=== PATIENT | female | born 1985 | race Caucasian/White ===

== ENCOUNTER 2025-02-20 10:05 | Outpatient (CLI) | payer OTHER, SELFPAY ==
--- OUTSIDE RECORDS SUMMARY | 2025-02-20 10:24 | XMS_ITS | Clinical Summary ---
Author Organization [facility] Address [facility] [place] [address] Care Team Providers Care Managed Care Analyst Name Role Phone Venkat Paul MD Primary Care Provider Allergies No known active allergies Medications cannabidiol, CBD, (medical cannabis) each daily Activ e Junel Fe 24 1 mg-20 mcg (24)/75 mg (4) per tablet Take 1 tablet by mouth daily 3 Active simethicone (GAS-X) 125 mg capsule Take one pill up to 4 times daily as needed for problematic cramping, bloating, gas, or nausea issues. 120 capsule 3 3 Active senna-docusate (PERICOLACE) 8.6-50 mg Take 1-2 tabs daily or a few times weekly for chronic constipation management. 180 tablet 3 3 Active UNABLE TO FIND Med Name: Magnesium drops Active multivitamin with iron tablet Take 1 tablet by mouth daily Active Lactobac. rhamnosus GG-inulin 10 billion cell -200 mg tablet,chewable Take by mouth Active Lactobacillus acidophilus 10 billion cell capsule Take by mouth Active metoprolol XL (TOPROL-XL) 25 mg extended release tablet Take 1 tablet (25 mg total) by mouth daily 90 tablet 3 4 08/22/20 Active Active Problems Problem Noted Date Diagnosed Date Irritable bowel syndrome with constipation 01/01 Bloating 01/02/2024 Family history of colon cancer 01/02/2024 Choroid plexus cyst 08/10/2023 Chronic constipation 08/10/2023 Osteoarthritis of knee 03/27/2018 Multiple melanocytic nevi 01/08/2018 Acne vulgaris 01/08/2018 Postinflammatory hyperpigmentation 01/08/2018 Conductive hearing loss 07/05/2017 Otosclerosis 07/05/2017 Glaucoma 09/07/2016 Scoliosis deformity of spine 09/06/2005 Encounters Date Type Department Care Team Description 02/18/2025 Telephone [facility] Gastroenterology at [address] [place] [phone] Denise Rivera GI Appointment 12/15/2024 Results Follow-Up [facility] Gastroenterology at [address] [place] [phone] Dominik Lozoya NP 12/09/2024 2:35 PM [employer] - 12/09/2024 11:59 PM [employer] Hospital Encounter [facility] [address] [place] [address] Chronic constipation; Abdominal fullness; Early satiety Discharge Disposition: Discharge to home or self care from Last 3 Months Immunizations Immunization Administration Dates Next Due Hep A, Adult 06/24/2020,12/10/2019 Tetanus toxoid, adsorbed 06/12/2016 Surgical History Surgery Date Site/Laterality Comments COLON SURGERY COLONOSCOPY 06/23/2024 Medical History Medical History Date Comments Glaucoma Chronic constipation Family History Medical History Relation Name Comments Arthritis Other Cancer Other Hypertension Other Stroke Other Colon cancer Paternal Grandmother Relation Name Status Comments Other Paternal Grandmother Social History Tobacco Use Types Packs/Day Years Used Date Smoking Tobacco: Never Smokeless Tobacco: Never Tobacco Cessation:Counseling Given: Not Answered AUDIT-C Answer Date Recorded Q1: How often do you have a drink containing alcohol? Never 06/19/2024 Q2: How many drinks containi ng alcohol do you have on a typical day when you are drinking? Patient does not drink Q3: How often do you have si x or more drinks on one occasion? Never 06/19/2024 Personal Safety Answer Date Recorded Have you ever been in or are you currently in a harmful physical or emotional relationship or is someone making you feel afraid or unsafe? Denies 08/07/2024 Comments Unknown Sex and Gender Information Value Date Recorded Sex Assigned at Not on file Legal Sex Female 7:41 PM [employer] Gender Identity Not on file Sexual Orientation Not on file Obstetrics History Last Filed Vital Signs Vital Sign Reading Time Taken Comments Blood Pressure 127/75 08/08/2024 1:35 AM CDT Pulse 93 08/08/2024 1:35 AM CDT Temperature 36.9 C (98.5 F) 08/08/2024 1:35 AM CDT Respiratory Rate 25 08/08/2024 1:35 AM CDT Oxygen Saturation 99% 08/08/2024 1:35 AM CDT Inhaled Oxygen Concentration - - Weight 62.6 kg (138 lb) 08/07/2024 9:28 PM CDT Height 157.5 cm (5' 2 ) 08/07/2024 9:28 PM CDT Body Mass Index 25.24 08/07/2024 9:28 PM CDT Plan of Treatment Health Maintenance Due Date Last Done Comments Cervical Cancer Screening 1986 Depression Screening 1986 Hepatitis C Screening 1986 Varicella Vaccines (1 of 2 - 13+ 2-dose series) 1999 Hepatitis B Screening 2004 Regular Well Visit/Exam 18-64 2004 DTaP/Tdap/Td Vaccine (1 - Tdap) 06/13/2016 6 Influenza Vaccine (Season Ended) 2025 HPV Vaccines Aged Out No longer eligi ble based on patient's age to complete this topic Pneumococcal vaccine <65 Aged Out No longer eligible based on patient's age to complete this topic Procedures Procedure Name Priority Date/Time Associated Diagnosis Comments XR KUB Schedule MINA, Read Routine (Patient lives out of area) 12/09/2024 2:50 PM [employer] Chronic constipation Abdominal fullness Early satiety from Last 3 Months Results * XR Kub (12/09/2024 2:50 PM [employer]) Anatomical Region Laterality Modality Body, Abdomen N/A Computed Radiogr aphy 12/09/2024 4:39 PM [employer] Narrative 12/09/2024 4:39 PM [employer] EXAM DESCRIPTION: XR KUB REASON FOR STUDY: Abdominal fullness and tightness. X-ray to rule out a high fecal load as a contributing factor. Any obvious constipation issue?, What is stool and gas pattern? Rule out constipation. H/o IBS w/ constipation, worsening over the past week. Abdominal distention and pressure TECHNIQUE: Single radiographic view of the abdomen. COMPARISON: 07/18/2017 FINDINGS: There is no definite evidence of a bowel obstruction. There is oxfqsbeq-kn-ttmmr amount of retained fecal debris in the colon, which is most significant in the transverse colon. There is no definite evidence of free air under the diaphragm within the limits of a supine projection. There is a stable mild levoscoliotic curvature of the spine. IMPRESSION: No definite evidence of bowel obstruction. Qvjlgbzq-yb-jrfvb amount of retained fecal debris in the colon, which is concerning for constipation. THIS IS AN ELECTRONICALLY VERIFIED FINAL REPORT 12/09/2024 4:39 PM - Electronically signed by Hans Selby D.O. PS: PS Report ID: [id number] Reading Location: [place] [address] Procedure Note Hans Selby, DO - 12/09/2024 EXAM DESCRIPTION: XR KUB REASON FOR STUDY: Abdominal fullness and tightness. X-ray to rule out a high fecal load as a contributing factor. Any obvious constipationissue?, What is stool and gas pattern? Rule out constipation. H/o IBS w/ constipation, worsening over the past week. Abdominaldistention and pressure TECHNIQUE: Single radiographic view of the abdomen. COMPARISON: 07/18/2017 FINDINGS: There is no definite evidence of a bowel obstruction. There is pruiyeny-mq-brtyl amount of retained fecal debris in the colon, which ismost significant in the transverse colon. There is no definite evidence offree air under the diaphragm within the limits of a supine projection. Thereis a stable mild levoscoliotic curvature of the spine. IMPRESSION: No definite evidence of bowel obstruction. Qdwlkphy-sb-loapw amount of retained fecal debris in the colon, which is concerning for constipation. THIS IS AN ELECTRONICALLY VERIFIED FINAL REPORT 12/09/2024 4:39 PM - Electronically signed by Hans Selby D.O. PS: PS Report ID: [id number] Reading Location: [place] [address] us Dominikjosy Lozoya TUNA PURSE SEINER IMG XR PROCEDURES F inal Result from Last 3 Months Insurance [facility] IDPA [facility] Advance Directives For more information, please contact: [phone] * Full Code (Latest Code Status on File) Date Activated Date Inactivated Comments 06/23/2024 11:58 AM 06/23/2024 6:09 PM * Full Code Date Activated Date Inactivated Comments 06/23/2024 11:58 AM 06/23/2024 11:58 AM Care Teams Managed Care Analyst Relationship Specialty Start Date End Date Venkat Paul MD [address] [facility] [facility] [facility] [address] [address] [place] [address] PCP - General Family Medicine 01/18/23
--- OUTSIDE RECORDS SUMMARY | 2025-02-20 10:24 | XMS_ITS | Clinical Summary ---
Author Organization [email or web address] Address [address] [place] [address] Care Team Providers Care Security Checker Name Role Phone Venkat Paul MD Primary Care Provider [phone] Source Comments [email or web address],non-owned Affiliates and Associated Physician Practices is amultiple site organization consisting of ambulatory clinics and hospital sitesin [place], [place], [place] and [place]. This disclosure is being madepursuant to the Care Everywhere program and may not contain all information available regarding this patient. Last updated 18.[email or web address] Allergies No known active allergies Medications * Be aware that medications may not be up to date on this document. Alwaysverify current medications with the patient. 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 Melanocytic nevi of trunk 07/19/2021 Conductive hearing loss 07/05/2017 Otosclerosis 07/05/2017 Family History Medical History Relation Name Comments None Known Brother None Known Father None Known Maternal Aunt None Known Maternal Grandfather None Known Maternal Grandmother None Known Maternal Uncle Cancer - Other Mother None Known Other None Known Paternal Aunt None Known Paternal Grandfather None Known Paternal Grandmother None Known Paternal Uncle None Known Sister Asthma Neg Hx CVA Neg Hx Cancer - Breast Neg Hx Cancer - Skin, Melanoma Neg Hx Cancer - Skin, Non Melanoma Neg Hx Eczema Neg Hx Hemophilia Neg Hx Psoriasis Neg Hx Relation Name Status Comments Brother Father Maternal Aunt Maternal Grandfather Maternal Grandmother Maternal Uncle Mother Alive Other Paternal Aunt Paternal Grandfather Paternal Grandmother Paternal Uncle Sister Social History Tobacco Use Types Packs/Day Years Used Date Smoking Tobacco: Never Smokeless Tobacco: Never Alcohol Use Standard Drinks/Week Comments Yes 4 (1 standard drink = 0.6 oz pur e alcohol) Comments Unknown Sex and Gender Information Value Date Recorded Sex Assigned at Not on file 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 Gender Identity Not on file Sexual Orientation Not on file Last Filed Vital Signs Vital Sign Reading Time Taken Comments Blood Pressure 105/70 06/27/2017 11:18 AM CDT Pulse 63 06/27/2017 11:18 AM CDT Temperature - - Respiratory Rate - - Oxygen Saturation - - Inhaled Oxygen Concentration - - Weight 69.9 kg (154 lb) 07/05/2017 2:51 PM CDT Height 157.5 cm (5' 2 ) 07/05/2017 2:51 PM CDT Body Mass Index 28.17 07/05/2017 2:51 PM CDT Plan of Treatment Health Maintenance Due Date Last Done Comments HIV SCREENING 2001 HEPATITIS C SCREENING 03/27/2004 DTAP/TDAP/TD VACCINES (1 - Tdap) 2005 HEPATITIS B VACCINE (1 of 3 - 19+ 3-dose series) 2005 COVID-19 VACCINE ( - 2023-2 5 season) 2024 DEPRESSION SCREENING 10/29/2024 INFLUENZA VACCINE (Season Ended) 2025 ZOSTER VACCINE (1 of 2) 2036 HIB VACCINE Aged Out No longer eligi ble based on patient's age to complete this topic HPV VACCINE Aged Out No longer eligi ble based on patient's age to complete this topic MENINGOCOCCAL (Group B) VACC INE SHARED DECISION-MAKING Aged Out No longer eligibl e based on patient's age to complete this topic MENINGOCOCCAL GROUPS A/C/Y/W VACCINE Aged Out No longer eligible b ased on patient's age to complete this topic PNEUMOCOCCAL VACCINE Aged Out No long er eligible based on patient's age to complete this topic Insurance [facility] Care Teams Security Checker Relationship Specialty Start Date End Date Venkat Paul MD [address] [place] [id number] PCP - General 06/29/21
--- OUTSIDE RECORDS SUMMARY | 2025-02-20 10:24 | XMS_ITS | Clinical Summary ---
[facility] Organization [facility] Address [address] [facility] [place] [phone] Phone Care Team Providers Care Bioinformatician Name Role Phone [facility], External Provider Primary Care Provider U navailable Social History Tobacco Use Types Packs/Day Years Used Date Smoking Tobacco: Never Assessed Comments Unknown Sex and Gender Information Value Date Recorded Sex Assigned at Not on file Legal Sex Female 9:49 AM CDT Gender Identity Not on file Sexual Orientation Not on file Plan of Treatment Health Maintenance Due Date Last Done Comments DTAP/TDAP/TD VACCINES (1 - Tdap) 2005 HEPATITIS B VACCINES (1 of 3 - 19+ 3-dose series) 2005 HPV/Cotest (21-29) 2007 CERVICAL CANCER SCREENING 2016 HPV/Cotest (30-65) 2016 PAP SMEAR 2016 INFLUENZA VACCINE (#1) 2024 HPV VACCINES Aged Out No longer eligi ble based on patient's age to complete this topic Insurance [facility] Care Teams Bioinformatician Relationship Specialty Start Date End Date [facility], External Provider [address], [place] [address] PCP - General 06/27/17
--- OUTSIDE RECORDS SUMMARY | 2025-02-20 10:24 | XMS_ITS | Referral Summary ---
Author Organization [facility] Address [address] [place] [address] Care Team Providers Care Welfare Analyst Name Role Phone Venkat Paul MD Primary Care Provider [phone] Encounters Date Type Department Care Team Description 02/18/2025 Telephone [facility] Gastroenterology at [address] [place] [phone] Denise Rivera GI Appointment 12/15/2024 Results Follow-Up [facility] Gastroenterology at [address] [place] [phone] Dominik Lozoya NP 12/09/2024 2:35 PM [employer] - 12/09/2024 11:59 PM [employer] Hospital Encounter [facility] [address] [place] [address] Chronic constipation; Abdominal fullness; Early satiety Discharge Disposition: Discharge to home or self care from Last 3 Months Allergies No known active allergies Medications cannabidiol, [...] Glaucoma 09/07/2016 Scoliosis deformity of spine 09/06/2005 Immunizations Immunization Administration Dates Next Due Hep A, Adult 06/24/2020,12/10/2019 Tetanus toxoid, adsorbed 06/12/2016 Social History Tobacco Use Types Packs/Day Years [...] on file Legal Sex Female 7:41 PM [employer] Gender Identity Not on file Sexual Orientation [...] 08/07/2024 9:28 PM CDT Plan of Treatment Not on file Procedures Procedure Name Priority Date/Time Associated Diagnosis Comments XR KUB Schedule MINA, Read Routine (Patient lives out of area) 12/09/2024 2:50 PM [employer] Chronic constipation Abdominal fullness Early satiety from Last 3 Months Results * XR Kub (12/09/2024 2:50 PM [employer]) Anatomical Region Laterality Modality Body, Abdomen N/A Computed Radiogr aphy 12/09/2024 4:39 PM [employer] Narrative 12/09/2024 4:39 PM [employer] WORK[employer] EXAM DESCRIPTION: XR KUB REASON FOR STUDY: [...] evidence of a bowel obstruction. There is pocxwlkz-eh-ahyvq amount of retained fecal debris in the colon, which is most significant in the transverse colon. There is no definite evidence of free air under the diaphragm within the limits of a supine projection. There is a stable mild levoscoliotic curvature of the spine. IMPRESSION: No definite evidence of bowel obstruction. Huhhlzzy-po-kbunn amount of retained fecal debris in the colon, which is concerning for constipation. THIS IS AN ELECTRONICALLY VERIFIED FINAL REPORT 12/09/2024 4:39 PM - Electronically signed by Hans Selby D.O. PS: PS Report ID: [id number] Reading Location: [id number] Procedure Note Hans Selby, DO - 12/09/2024 [...] evidence of a bowel obstruction. There is jodlatne-ar-sfwme amount of retained fecal debris in the colon, which ismost significant in the transverse colon. There is no definite evidence offree air under the diaphragm within the limits of a supine projection. Thereis a stable mild levoscoliotic curvature of the spine. IMPRESSION: No definite evidence of bowel obstruction. Tqbvftdy-tn-eefda amount of retained fecal debris in the colon, which is concerning for constipation. THIS IS AN ELECTRONICALLY VERIFIED FINAL REPORT 12/09/2024 4:39 PM - Electronically signed by Hans Selby D.O. PS: PS Report ID: [id number] Reading Location: [id number] us Dominik Moriahvinay Lozoya WEB PRESSMAN IMG XR PROCEDURES F inal Result from Last 3 Months Insurance [facility] IDPA IDPA [facility] Advance Directives For more information, please contact: [phone] * Full Code (Latest Code Status on File) Date Activated Date Inactivated Comments 06/23/2024 11:58 AM 06/23/2024 6:09 PM * Full Code Date Activated Date Inactivated Comments 06/23/2024 11:58 AM 06/23/2024 11:58 AM Care Teams Welfare Analyst Relationship Specialty Start Date End Date Venkat Paul MD [address] [place] [address] [address] [place] [address] PCP - General Family Medicine 01/18/23
--- OUTSIDE RECORDS SUMMARY | 2025-02-20 10:24 | XMS_ITS | Data Portability ---
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 500 mg capsule TAKE 1 CAPSULE BY MOUTH EVERY 8 HOURS 07/19 completed Not Available Not Available Not Available Iron (ferrous sulfate) 325 mg (65 mg iron) tablet Take 2 tablets every day by oral route. 09/07 completed Not Available Not Available Not Available Doc-Q-Lace 100 mg capsule 09/07 completed Not Available Not Available Not Available ciprofloxac in 500 mg tablet TAKE 1 TABLET BY MOUTH TWICE DAILY 09/04 completed Not Available Not Available Not Available sulfamethox azole 800 mg-trimetho prim 160 mg tablet Take 1 tablet every 12 hours by oral route for 7 days. 03/11 completed Not Available Not Available Not Available Vitamin tablet Take 1 tablet every day by oral route for 30 days. 09/07 completed Not Available Not Available Not Available amoxicillin 875 mg tablet TAKE 1 TABLET BY MOUTH TWICE DAILY FOR 7 DAYS 12/21 completed Not Available Not Available Not Available polymyxin B sulfate 10,000 unit-trimet hoprim 1 mg/mL eye drops 12/21 completed Not Available Not Available Not Available ibuprofen 600 mg tablet 09/07 completed Not Available Not Available Not Available oxycodone-a cetaminophe n 7.5 mg-325 mg tablet TAKE 1 TABLET EVERY 6 HOURS NEEDED FOR PAIN 07/26 completed Not Available Not Available Not Available fluticasone propionate 50 mcg/actuati on nasal spray,suspe nsion SHAKE LIQUID AND USE 2 SPRAYS IN EACH NOSTRIL EVERY DAY active Not Available Not Available No t Available Nilda 0.35 mg tablet 09/07 completed Not Available Not Available Not Available chlorhexidi ne gluconate 0.12 % mouthwash SWISH AND SPIT 15 ML BY MOUTH THREE TIMES DAILY UNTIL ALL TAKEN 09/04 completed Not Available Not Available Not Available Se-Milena 19 (with docusate) 29 mg iron-1 mg-25 mg tablet 09/07 completed Not Available Not Available Not Available Stimulant Laxative Plus 8.6 mg-50 mg tablet TAKE 2 TABLETS BY MOUTH EVERY DAY NEEDED 07/26 completed Not Available Not Available Not Available Gummy 400 mcg-35 mg-25 mg-5 mg chewable tablet Take 1 tablet every day by oral route as directed. 09/07 completed Not Available Not Available Not Available Aurovela 24 Fe 1 mg-20 mcg (24)/75 mg (4) tablet TAKE 1 TABLET BY MOUTH EVERY DAY 09/04 completed Not Available Not Available Not Available ID NOW COVID-19 Test Kit TEST DIRECTED TODAY 07/26 completed Not Available Not Available Not Available Vitals Date Recorded Body weight Body mass index (BMI) Body height Respiratory rate Body temperature Oxygen saturation Oxygen saturation in Arterial blood by Pulse oximetry Heart rate Systolic blood pressure Diastolic blood pressure Provider Name and Address Organization Details Last Updated DateTime 4 72993.3 g 24.8 kg/m2 158.75 cm 16 /min 98.9 [degF] 99 % 99 % 85 /min 122 mm[Hg] 85 mm[Hg] Mercy Corley [place] [facility] 4 14:42:35 Date Recorded Body height Body mass index (BMI) Body weight Oxygen saturation Oxygen saturation in Arterial blood by Pulse oximetry Heart rate Respiratory rate Body temperature Systolic blood pressure Diastolic blood pressure Provider Name and Address Organization Details Last Updated DateTime 5 158.75 cm 23.8 kg/m2 31547.9 9 g 100 % 100 % 98 /min 16 /min 97.3 [degF] 105 mm[Hg] 73 mm[Hg] Shawna Raza MA [facility] 5 12:15:53 Date Recorded Body height Body mass index (BMI) Body weight Heart rate Systolic blood pressure Diastolic blood pressure Provider Name and Address Organization Details Last Updated DateTime 5 158.75 cm 24.5 kg/m2 77903.9 9 g 67 /min 115 mm[Hg] 78 mm[Hg] [facility] 5 11:46:59 Date Recorded Body height Body mass index (BMI) Body weight Respiratory rate Body temperature Heart rate Systolic blood pressure Diastolic blood pressure Provider Name and Address Organization Details Last Updated DateTime 5 158.75 cm 25 kg/m2 39348.3 4 g 16 /min 98 [degF] 84 /min 114 mm[Hg] 80 mm[Hg] Mita Aviles [facility] 5 16:27:16 Date Recorded Body height Body mass index (BMI) Body weight Body temperature Heart rate Systolic blood pressure Diastolic blood pressure Provider Name and Address Organization Details Last Updated DateTime 5 158.75 cm 25.1 kg/m2 09171.4 2 g 100.5 [degF] 67 /min 122 mm[Hg] 80 mm[Hg] Moriah Leblanc MA [facility] 5 15:32:41 Social History Question Answer Notes LastModified by Organization Details LastModified Time Tobacco Smoking Status [facility] 08/11/2015 12:05:24 Do You Have An Advance Directive? No Information not available 09/07/2016 What Is Your Level Of Alcohol Consumption? None [email or web address] Information not available 09/04/2024 What Is Your Level Of Caffeine Consumption? Moderate Information not available 09/07/2016 In The 14 Days Before Symptom Onset, Have You Had Close Contact With A Laboratory-con firmed COVID-19 While That Case Was Ill? No Information not available 03/06/2022 In The 14 Days Before Symptom Onset, Have You Had Close Contact With A Person Who Is Under Investigation For COVID-19 While That Person Was Ill? No Information not available 03/06/2022 Have You Been To An Area Known To Be High Risk For COVID-19? No Information not available 03/06/2022 Are You Currently Employed? Yes Information not available 09/07/2016 What Type Of Diet Are You Following? REGULAR Information not available 09/07/2016 Which Illicit Or Recreational Drugs Have You Used? None Information not available 09/07/2016 Do You Or Have You Ever Used E-cigarettes Or Vape? Never Used Electronic Cigarettes Information not available 12/10/2019 Education 2 Year College Informatio n not available 09/07/2016 What Is Your Occupation? Self Employed Information not available 09/07/2016 Are There Any Guns Present In Your Home? No Information not available 09/07/2016 Legally Blind In One Or Both Eyes? No Information not available 09/07/2016 Live Alone Or With Others? With Others , Has A 3 Mos Old [email or web address] Information not available 09/08/2016 Do You Have A High School Diploma Or Higher Education? Yes Information not available 12/21/2022 Do You Sometimes Have To Miss Your Medical Appointments Due To Difficult Getting Transportation ? No Information not available 12/21/2022 Do You Feel Unfairly Treated Due To Things Such As Race, Age, Gender, Disability Or Some Other Reason? No Information not available 12/21/2022 Do You Feel Physically And Emotionally Safe While Living At Home? Yes Information not available 12/21/2022 Do You Feel Physically And Emotionally Safe In Your Neighborhood Or Other Public Places? Yes Information not available 12/21/2022 What Was The Date Of Your Most Recent Tobacco Screening? 02/17/2025 Information not available 02/17/2025 How Many Children Do You Have? 2 [email or web address] Information not available 07/25/2016 What Is Your Relationship Status? Information not available 12/21/2022 Do You Use Your Seat Belt Or Car Seat Routinely? Yes Information not available 12/21/2022 Are You Sexually Active? Yes Information not available 09/07/2016 Smoke Alarm In Home Yes Information not available 09/07/2016 Do You Have Smoke And Carbon Monoxide Detectors In Your Home? Yes Information not available 12/21/2022 Are You Passively Exposed To Smoke? Yes Information not available 12/21/2022 Do You Or Have You Ever Used Smokeless Tobacco? Never Used Smokeless Tobacco Information not available 12/10/2019 How Much Tobacco Do You Smoke? No Information not available 12/10/2019 General Stress Level High Information not available 09/07/2016 Do You Feel Stressed (tense, Restless, Nervous, Or Anxious, Or Unable To Sleep At Night)? [id number] Information not available 12/21/2022 Do You Use Any Illicit Or Recreational Drugs? Yes Medical Marijuana Information not available 12/21/2022 Do You Use Sunscreen Routinely? Yes Information not available 12/21/2022 Has Tobacco Cessation Counseling Been Provided? Yes Information not available 12/21/2022 On What Date Was Tobacco Cessation Counseling Provided? 02/17/2025 Information not available 02/17/2025 How Many Years Have You Smoked Tobacco? 0 Information not available 12/10/2019 What Type Of Noise Exposure Are You Exposed To? NoExposureToExcessiveN oise [email or web address] Information not available 02/03/2025 Do You Or Have You Ever Used Any Other Forms Of Tobacco Or Nicotine? No Information not available 03/06/2022 Sex: Female Functional Status Question Answer Note LastModified by Organization D etails LastModified Time Are you able to care for yourself? Yes Information not available 09/07/2016 What is your exercise level? Moderate Information not available 09/07/2016 Mental Status None recorded. Family History Relationship Description Onset Age of this Age Resolved Age Notes LastModified by Organization Details LastModified Time Maternal Grandmother Diabetes mellitus [email or web address] Not available 17:01:09 Maternal Grandfather Diabetes mellitus [email or web address] Not available 17:01:09 Father Alcohol abuse [email or web address] available 2015 14:23:36 Notes:no new reported 3, 09/04/24, 12/22/24 Medical History Condition Response Coronary Artery Disease N Other N Atrial Fibrillation N High Blood Pressure N Breast Cancer N Lung Disease N Depression N COPD N Blood Clots N Breast Problem N Anesthesia Complications N Headaches/Migraines N Anxiety Disorder N Muscle, Joint, or Bone Problems N Arthritis N Infertility N Polyps N Acid Reflux (GERD) N Cancer N Stroke N Endometriosis N High Cholesterol N Liver Disease N Fibromyalgia N Headaches N Kidney Disease N Heart Problems N Thyroid Problems N Kidney or Bladder Problems N GI Problems N Acne N Eating Disorder N Skin Problems N Anemia N Heart Attack ([place]) N Diabetes N Ovarian Cancer N Blood Transfusions N Seizures/Epilepsy N Abuse/Domestic Violence N Asthma N Allergies N Hepatitis N Heart Disease N Pre-Eclampsia N Hypertension N Heart Failure N Osteoporosis N Gynecological History Statement/Question Response Flow Moderate STIs/STDs N Duration of Flow (days) 5 Age at Menarche 13 Current Control Method Partner Vas ectomy Sexually Active? Y Menses Monthly Y Date of Last Pap Smear 01/09/2025 Sexual Problems? N LMP Approximate Desired Control Method Partner Vas ectomy Obstetrics History GPAL:G 4 P 1 1 2 2 Type Value Full Term 1 Spontaneous 2 Premature 1 Living 2 Total 4 Immunizations Vaccine Type Date Status Note Provider Nam e and Address Organization Details Recorded Time Hep A, adult 12/10/2019 completed Shawna R[place], [place] [facility] 12/10/2019 11:25:40 Hep A, adult 06/24/2020 tommy Raza [place], [place] [facility] 06/24/2020 17:59:43 tetanus toxoid, adsorbed 06/12/2016 to[place] avila[place] [facility] 09/07/2016 14:25:44 Past Encounters Encounter ID Performer Location Encounter Start Date Encounter Closed Date Diagnosis/Indication Diagnosis SNOMED-CT Code Diagnosis ICD10 Code Diagnosis Note [id number] Melita Marie ([facility] [address]) [address] [place] [address] 08/11/2015 11:54:01 08/11/2015 12:52:28 detection examination 13377360 Z32.00 Pain in pelvis 84680241 R10.2 Miscarriage 52341154 O03 .9 [id number] PHYLLIS Gomez ([facility] 122) [address] [facility] [place] [address] 01/10/2016 16:24:24 01/11/2016 12:18:35 31991294 Z33.1 Gynecologi c examination 18140524 Z01.419 [id number] PHYLLIS Gomez ([facility] 122) [address] [facility] [address] 02/07/2016 11:46:03 02/07/2016 14:14:24 Normal 66222294 Z34.82 [id number] PHYLLIS Gomez ([facility] 122) [address] [facility] [place] [address] 02/28/2016 17:04:12 02/29/2016 10:09:39 Normal 08456242 Z34.82 [id number] PHYLLIS Gomez ([facility] 122) [address] [facility] [place] [address] 03/22/2016 09:09:24 03/22/2016 13:30:49 Normal 78632641 Z34.82 [id number] PHYLLIS Gomez ([facility] 205) [address] [facility] [place] [address] 04/18/2016 12:13:40 04/18/2016 15:14:39 Normal 33642783 Z34.83 Past pregn uri history of section 725141535 Z98.89 [id number] PHYLLIS Gomez ([facility] 205) [address] [facility] [place] [address] 05/11/2016 11:17:49 05/11/2016 12:21:35 Normal 54885849 Z34.83 Past pregn uri history of section 238625389 Z98.89 [id number] PHYLLIS Gomez ([facility] 205) [address] [facility] [place] [address] 07/25/2016 16:33:48 07/26/2016 09:29:25 care [id number] Z39.[id number] [address] 09/07/2016 14:06:15 09/08/2016 15:43:04 Adult health examination 213479492 Z00.00 Body mass index 25-29 - overweight 013156260 Z68.[id number] [address] 02/27/2017 11:15:43 03/02/2017 10:42:58 Ringing in ear 103223205 H93.13 Depression screening 171 975338 Z13.89 PHQ 9 = 3 neg., [id number] RAYMUNDO MEJIA NP [address] [address] 07/18/2017 12:04:11 07/19/2017 19:38:13 Renal pain 827099350 N23 Adult heal th examination 400078883 Z00.00 Dysuria 93440009 R30.0 [id number] Mandeep Rice MD [facility] ([facility] 205) [address] [address] 07/31/2017 14:09:50 07/31/2017 16:42:45 Gynecologic examination 78527232 Z01.148 [id number] RAYMUNDO MEJIA NP [address] [address] 03/11/2018 15:30:37 03/11/2018 16:51:03 Urinary symptoms 340108727 R30.0 flank pain Bilateral knee pain 1187 319384 4019407 M25.561 M25.562 Adult heal th examination 552173029 Z00.00 [id number] Neyda Dugan MA [address] [address] 03/14/2018 10:38:40 03/14/2018 19:25:31 Adult health examination 007999812 Z00.00 [id number] RAYMUNDO MEJIA NP [address] [address] 03/26/2018 15:24:59 03/27/2018 13:09:38 Osteoarthritis of knee 591853982 M17.0 [id number] RAYMUNDO MEJIA NP [facility] [address] [place] [address] 07/11/2018 16:34:27 07/11/2018 18:54:20 Adult health examination 656144975 Z00.00 [id number] MD Melita Burton 14 OB [address] [facility] [address] 08/01/2018 15:35:10 08/05/2018 13:34:00 Gynecologic examination 63868544 Z01.515 [id number] MD Melita Burton 14 OB [address] [facility] [address] 03/04/2019 14:58:22 03/05/2019 08:14:56 Lethargy 929293224 R53.83 [id number] MD Melita Jang 14 IM [address] [facility] [address] 11/03/2019 11:49:36 11/05/2019 11:58:18 Knee pain 07697835 M25.569 Multiple b enign melanocytic nevi 065592189 D22.9 [id number] MD Melita Jang 14 IM [address] [facility] [address] 12/10/2019 10:19:41 12/11/2019 15:15:12 Requires a hepatitis A vaccination 098754953 Z28.3 [id number] MD Melita Jang 14 IM [address] [facility] [address] 06/24/2020 16:31:19 06/28/2020 12:00:18 Requires a hepatitis A vaccination 500901794 Z28.3 [id number] MD Melita Burton 14 OB [address] [facility] [address] 03/06/2022 11:13:26 03/07/2022 05:41:52 Gynecologic examination 85192835 Z01.775 [id number] MD Melita Jang 14 IM [address] [facility] [address] 12/21/2022 11:10:18 12/22/2022 13:16:58 Obesity 463946033 E66.9 Pre-surger y evaluation 008414524 Z01.933 [id number] MD Melita Burton 14 OB [address] [facility] [address] 07/30/2023 16:35:41 08/07/2023 11:14:48 Gynecologic examination 17308482 Z01.419 Premenstru al tension syndrome 19440848 N94.3 [id number] MD Melita Jang 14 IM [address] [facility] [address] 09/04/2024 14:26:59 09/11/2024 15:44:11 Under care of weight checker 015360490 Z76.89 Dysuria 01363587 R30.0 Adult heal th examination 728789637 Z00.00 Under care of steamer gum candy 576357736 Z76.89 [id number] MD Melita Jang 14 IM [address] [facility] [address] 12/22/2024 12:01:37 12/24/2024 12:48:19 Constipation 45965333 K59.00 Vitamin D deficiency 347 13638 E55.9 pt takes 4000 IU daily Viral gastroenteritis 11 5527925 A08.4 now better Tinnitus of right ear 48 86639572 108 H93.11 [id number] MD Melita Burton 14 OB [address] [facility] [place] [address] 01/09/2025 11:33:57 01/12/2025 15:08:05 Gynecologic examination 46176414 Z01.462 [id number] MD Vinny Rosas (Adult Med) [address] [facility] [address] 02/03/2025 16:10:08 02/04/2025 10:23:08 Chronic rhinitis 01700250 J31.0 return 2 weeks Sensorineu ral hearing loss 78703464 H90.5 [id number] MD Vinny Rosas (Adult Med) [address] [place] [address] 02/17/2025 15:25:59 02/18/2025 16:17:33 Chronic rhinitis 11389354 J31.0 return 2 weeks continue flonase follow after audio Health Concerns Section Related Observation LastModified by Organization Detai ls LastModified Time None Recorded Concern Status LastModified by Organization Details LastModified Time None Recorded Advance Directives Directive N: Payers Encounter Date Sequence Insurance Name Policy Number Policy Purcell Covered Member ID Purcell Member ID Guarantor Name 09/04/2024 1 [place] [facility] Marianna Sanford [id number] Marianna Barth [place] 12/22/2024 1 [place] [facility] Marianna Eddyda [id number] Marianna Barth [place] 01/09/2025 1 [facility] ON OR AFTER 04/28/21 (MEDICAID REPLACEMENT - HMO) Marianna Eddyda [id number] Marianna Barth [place] 02/03/2025 1 [facility] ON OR AFTER 04/28/21 (MEDICAID REPLACEMENT - HMO) Marianna Eddyda [id number] Marianna Eddyda 02/17/2025 1 [facility] - DOS ON OR AFTER 21 (MEDICAID REPLACEMENT - HMO) Marianna Eddyda [id number] Marianna Sanford Notes Date Note Type Note Provider Name and Address Organization Details Recorded Time 09/04/2024 text/html Per intake note. Venkat chester MD Attn: [address] [place], [address], [facility] 09/07/2024 13:03:48 12/22/2024 text/html Per intake note. Pt states that essentially all of her sxs have resolved at present, and she is quite pleased. Venkat Jain MD Attn: [address] [place], [address], [facility] 12/24/2024 07:08:05 01/09/2025 text/html Annual GYNReport ed bypatient.Menstrua l cycle:Normal menses Urinary symptoms:No hematuria; No incontinence Vulva:No genital lesion Vagina:Normal vaginal discharge Breast:No breast pain; No breast lump; No nipple discharge Current Contraception:Part ner had vasectomy Sexual complaints:No sexual complaints; No pain during intercourse; Normal libido Menopausal Symptoms:No menopausal symptoms; Normal vaginal lubrication Psychological symptoms:No depression; No anxiety; No PMDD doing well4 day periods, no issues good spiritshas gone back 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 son is 5 ft.jonny (20) is 5'8 Mandeep Rice MD Attn: Accounting,[address] [facility], [place], [address], [facility] 01/09/2025 12:04:57 02/03/2025 text/html Pt complaining o f nasal congestion and drainage. She has pressure and pain in her forehead. She also complains of ringing in her ears. Riki Ruiz MD Attn: Accounting[address] [facility], [place], [address], [facility] 02/03/2025 16:41:57 02/17/2025 text/html Pt complaining o f nasal congestion and drainage. She started flonase and zyrtec and has improved but not resolved. She is scheduled for an audio next week Riki Ruiz MD Attn: [address] [place], [address], [facility] 02/17/2025 15:42:27 OBGyn Episode Ob Episode Information Episode Created Date Number of Fetuses Patient Bloodtype Patient rh Status Prepregnancy Weight lbs Domestic Partner Domestic Partner Phone Father Name Load Haul Dump Operator Status 01/10/20 16 1 CLOSED Fetus Data First Name Last Name Admitted to NICU Weight (g) Sex Living Outcome Pediatric Complications Fetus ID Race Codes Race Delivery Type 4053.97 85 F Full Term [id number] Papo Calculation Initial Papo Date Initial Exam Date Initial Exam Provider Initial Ultrasound Date Last Menstrual Period Date Ultra Sound Weeks Gestation 0 Eighteen To Twenty Week Papo Update Ultra Sound Date Fundal Height At Umbil Quickening Date Ultra Sound Latest Weeks Gestation Final Papo Confirmed By Final Papo Confirmed Date Final Papo Date Ultra Sound Latest Days Gestation 0 0 Menstrual History Last Menstrual Date Menses Monthly On Bcp Conception Prior Menses Frequency Hcg Plus Date Menarche Onset Age Delivery Information Delivery Date Delivery Type Labor Anesthesia Weeks Gestation Incision Type Labor Labor Length Hrs Delivered By Post Complications Tubal Sterilization Discharge Date Comments 5 42 false 23 Discharge Information Feeding Method Contraceptive Method Maternal HG B and HCT Levels Ob Episode Information Episode Created Date Number of Fetuses Patient Bloodtype Patient rh Status Prepregnancy Weight lbs Domestic Partner Domestic Partner Phone Father Name Load Haul Dump Operator Status 01/10/20 16 1 O Positive Elvis Sanford CLOSED Fetus Data First Name Last Name Admitted to NICU Weight (g) Sex Living Outcome Pediatric Complications Fetus ID Race Codes Race Delivery Type Naresh Sanford false 2438.05 7 M true Prematur e [id number] White Problems Problem Notes Problem Name Start Date End Date Resolution Snomed Code Not e Iron deficiency anemia of [id number] Choroid plexus cyst [id number] Past history of ce sarean section [id number] Papo Calculation Initial Papo Date Initial Exam Date Initial Exam Provider Initial Ultrasound Date Last Menstrual Period Date Ultra Sound Weeks Gestation 06/28/2016 01/10/2016 mpass 01/24/2016 09/22/2015 0 Eighteen To Twenty Week Papo Update Ultra Sound Date Fundal Height At Umbil Quickening Date Ultra Sound Latest Weeks Gestation Final Papo Confirmed By Final Papo Confirmed Date Final Papo Date Ultra Sound Latest Days Gestation 0 06/28/20 16 0 Pre- Flowsheet Flowsheet Date 01/10/2016 Canales Score Blood Edema Fundus Height Fundus Units Glucose Ketones Leukocytes Nitrite Labor Signs Protein Cervic Dilation Cervic Effacement Cervic Station neg none none negative neg 0cm 0% - 4 Type Weight in lbs Pre/Post Dialysis Refused 138.220452110335 BP Diastolic BP Location Tested BP Systolic BP Type 60 120 sitting Fetus Heart Rate Present Fetus Movement A No Comments Initial labs, initial us ord er Flowsheet Date 02/07/2016 Canales Score Blood Edema Fundus Height Fundus Units Glucose Ketones Leukocytes Nitrite Labor Signs Protein Cervic Dilation Cervic Effacement Cervic Station neg none 18 cm none moderate trace Type Weight in lbs Pre/Post Dialysis Refused 137.264147368802 BP Diastolic BP Location Tested BP Systolic BP Type 68 106 sitting Fetus Heart Rate Present A 153 Fetus Movement A Yes Comments Quad screen. Signed medical marijuana form. Uses for glaucoma and pain. Flowsheet Date 02/28/2016 Canales Score Blood Edema Fundus Height Fundus Units Glucose Ketones Leukocytes Nitrite Labor Signs Protein Cervic Dilation Cervic Effacement Cervic Station neg none 22 cm none small neg Type Weight in lbs Pre/Post Dialysis Refused 141.510493641006 BP Diastolic BP Location Tested BP Systolic BP Type 64 114 sitting Fetus Heart Rate Present A 140 Fetus Movement A Yes Comments Gave order for second US. Ga ve dental treatment form so crown can be finished. Flowsheet Date 03/22/2016 Canales Score Blood Edema Fundus Height Fundus Units Glucose Ketones Leukocytes Nitrite Labor Signs Protein Cervic Dilation Cervic Effacement Cervic Station neg none 25 cm none negative neg Type Weight in lbs Pre/Post Dialysis Refused 146.718054375624 BP Diastolic BP Location Tested BP Systolic BP Type 60 110 sitting Fetus Heart Rate Present A 145 Fetus Movement A Yes Comments 28 week labs. Flowsheet Date 04/18/2016 Canales Score Blood Edema Fundus Height Fundus Units Glucose Ketones Leukocytes Nitrite Labor Signs Protein Cervic Dilation Cervic Effacement Cervic Station 28 cm Type Weight in lbs Pre/Post Dialysis Refused 148.238745357700 BP Diastolic BP Location Tested BP Systolic BP Type 52 96 sitting Fetus Heart Rate Present A 150 Present Fetus Movement A Yes Comments discussed repeat c/s @ 39 we eks Flowsheet Date 05/11/2016 Canales Score Blood Edema Fundus Height Fundus Units Glucose Ketones Leukocytes Nitrite Labor Signs Protein Cervic Dilation Cervic Effacement Cervic Station 32 cm Type Weight in lbs Pre/Post Dialysis Refused 149.652544235206 BP Diastolic BP Location Tested BP Systolic BP Type 54 108 sitting Fetus Heart Rate Present A 145 Present Fetus Movement A Yes Comments Doing well - would like c/s repeat close to due date, not a week early ; will schedule next time Flowsheet Date 07/25/2016 Canales Score Blood Edema Fundus Height Fundus Units Glucose Ketones Leukocytes Nitrite Labor Signs Protein Cervic Dilation Cervic Effacement Cervic Station Type Weight in lbs Pre/Post Dialysis Refused 141.622302753543 BP Diastolic BP Location Tested BP Systolic BP Type 56 82 sitting Fetus Heart Rate Present Fetus Movement Comments Menstrual History Last Menstrual Date Menses Monthly On Bcp Conception Prior Menses Frequency Hcg Plus Date Menarche Onset Age 1109/22/2015 true false 28 12 Genetic Screening And Infection History Question Response Note Patient's Age Will Be 35 Yea rs Or Older At Estimated Date of Delivery false Thalassemia (Maori, Malian, Mediterranean, Or Background): MCV < 80 false Neural Tube Defect (Meningom yelocele, Spina Bifida, Or Anencephaly) false Congenital Heart Defect false Down Syndrome false [place]-Sachs (eg, Religious, Cajun , Irish-Island) false Abiola Disease false Sickle Cell Disease Or Trait () false Hemophilia Or Other Blood Disorders false Muscular Dystrophy false Cystic Fibrosis false Avni's Chorea false Mental Retardation/Autism false Other Inherited Genetic Or C hromosomal Disorder true Ectodermal dysplasia Maternal Metabolic Disorder (eg, Type 1 Diabetes, PKU) false Patient Or Baby's Father Had A Child With Defects Not Listed Above false Recurrent Loss, Or A Stillbirth false Medications (including Suppl ements, Vitamins, Herbs, OTC Drugs), Illicit/Recreational Drugs, Alcohol true Prenatals, Prescri ption for Marijuana for pain and glaucoma Any Other Genetic History false Live With Someone With TB Or Exposed To TB false Patient Or Partner Has Histo ry Of Genital Herpes false Rash Or Viral Illness Since Last Menstrual Period false History Of STD, Gonorrhea, C hlamydia, HPV, Syphilis false Delivery Information Delivery Date Delivery Type Labor Anesthesia Weeks Gestation Incision Type Labor Labor Length Hrs Delivered By Post Complications Tubal Sterilization Discharge Date Comments [facility] idural 36.[address] Muhammad 06/03/2016 labor Discharge Information Feeding Method Contraceptive Method Maternal HG B and HCT Levels
== END 2025-02-20 10:06 | disposition home or self-care (01) ==
LOC: ANHAUDIO 10:05
PROVIDERS: Visit Provider Otolaryngology
DX: H93.11 Tinnitus, right ear (principal); H90.0 Conductive hearing loss, bilateral
CPT/HCPCS: 92557; 92567